=== PATIENT | female | born 1975 | race Two or more races ===

== ENCOUNTER 2023-11-06 16:05 | Emergency (ER) | payer OTHER ==
[~2023-11-06] VITALS: Ht 162.6 cm; Wt 70.3 kg
[2023-11-06 16:17] VITALS: BP 126/80; O2SAT 98
[2023-11-06] MEDS ORDERED: ORPHENADRINE CITRATE 30 MG/ML AMPUL IM STA (18:39)
[2023-11-06] MEDS ORDERED: DEXAMETHASONE SODIUM PHOSPHATE 4 MG/ML VIAL IM STA (18:41)
[2023-11-06 19:30] LABS: CALCIUM 9.9 mg/dL (8.5-10.1); CREATININE SERUM 0.93 mg/dL (0.55-1.02); GFR 64.9; POTASSIUM 3.91 mEq/L (3.5-5.1)
[2023-11-06 19:33] LABS: HEMATOCRIT 40.1 % (36.0-45.00); HEMOGLOBIN 13.7 g/dL (12.0-15.00); MEAN CORPUSCULAR HEMOGLOBIN 31.8 pg (27.00-32.0); MEAN CORPUSCULAR HGB CONC 34.2 g/dl (32.0-36.0); PLATELET COUNT 241 K/uL (150-450); RED BLOOD COUNT 4.31 M/uL (4.00-6.00); RED CELL DISTRIBUTION WIDTH 12.7 % (11.5-14.5)
[2023-11-06] MEDS ORDERED: NORFLEX100MG PO (21:09)
== END 2023-11-06 21:54 | disposition home or self-care (01) ==
LOC: ER 16:06
DX: R51.9 Headache, unspecified (principal)